=== PATIENT | male | born 1980 | race African-American/Black ===

== ENCOUNTER 2017-01-27 12:58 | Emergency (ER) | payer SELFPAY ==
[~2017-01-27] VITALS: Ht 175.3 cm; Wt 83.0 kg
[~2017-01-27 12:58] MED LIST: HYDR-3534 PO; PENI500T PO
[2017-01-27 13:00] VITALS: BP 149/73; PULSE 108; RESP 20; TEMP 97.8; O2SAT 100
--- NOTE | 2017-01-27 13:07 | PD ---
Physical Exam Time Seen by Provider: 13:05 Narrative 36 y/o male presents for evaluation of bilateral hand pain/paresthesias for 2 years. 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 Vital signs reviewed. Seen at triage desk, awaiting bed placement. Data Data Last Documented VS Vital Signs Date Time Temp Pulse Resp B/P Pulse Ox O2 Delivery O2 Flow Rate FiO2 01/27/17 13:00 97.8 108 20 149/73 100 Room Air [facility] Medical Record Reviewed: Yes Supervised Visit with SHERIF: Roger Rivera January 27, 2017 13:07
--- NOTE | 2017-01-27 13:28 | PD ---
HPI Chief Complaint: Numbness/Tingling Time Seen by Provider: 13:11 Travel History International Travel<30 days: No Contact w/Intl Traveler<30days: No Traveled to known affect area: No History of Present Illness HPI Patient is a 36-year-old male presents emergency Department with paresthesias. For the last 2 years he has had a burning, paresthesia tight pain in the bilateral hands. States initially this is in the first through third fingers on the hands but is now in the first through 5 fingers on both hands. Patient states that it feels as though he fell asleep on his hands and woke up. If he flicks the hands in a rapid fashion" gets more blood flow" to the hands they seemed to "wake up" and the paresthesias improves. Patient presents to the ER today stating that his symptoms seem to be getting worse. He has never seen anybody for this. PFSH Past Medical History Bipolar Disorder: Yes Psychiatric: Yes (BIPOLAR) Immunizations Current: Yes Social History Alcohol Use: No Tobacco Use: Yes (1PPD) Substance Use: Yes (MARIJUANA) Allergies-Medications (Allergen,Severity, Reaction): Coded Allergies: Aspirin (Verified Allergy, Severe, Anaphylaxis, 01/27/17) Reported Meds & Prescriptions Reported Meds & Active Scripts Active Lortab 7.5 mg/325 mg (Hydrocodone/Acetaminophen 7.5 mg/325 mg) 1 Tab 1 Tab PO Q4H PRN Pen Vk (Penicillin V Potassium) 500 Mg Tab 1 Tab PO Q6 Review of Systems Except as stated in HPI: all other systems reviewed are Neg Physical Exam Narrative GENERAL: Well-appearing male in no acute distress SKIN: Focused skin assessment warm/dry. HEAD: Normocephalic. EYES: No scleral icterus. No injection or drainage. ENT: Mucous membranes pink and moist. NECK: Supple CARDIOVASCULAR: Regular rate and rhythm. RESPIRATORY: No accessory muscle use. MUSCULOSKELETAL: Bilateral hands without obvious deformity, edema, skin changes. Good distal sensation, pulses, capillary refill. He does complain of some subjective paresthesias along the fingertips of the hands bilaterally. 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 With hyperflexion and hyperextension of the wrist patient has reproducible paresthesias NEUROLOGICAL: Awake and alert. Normal speech. PSYCHIATRIC: Appropriate mood and affect; insight and judgment normal. Data Data Last Documented VS Vital Signs Date Time Temp Pulse Resp B/P Pulse Ox O2 Delivery O2 Flow Rate FiO2 01/27/17 13:00 97.8 108 20 149/73 100 Room Air [facility] Medical Decision Making Medical Screen Exam Complete: Yes Emergency Medical Condition: No Medical Record Reviewed: Yes Differential Diagnosis 36 year-old male here with 2 years of burning type pain, paresthesias in the bilateral hands. Differential includes carpal tunnel syndrome, neuropathy Narrative Course No emergent medical condition, 2 years of symptoms. Reproducible hyperflexion and hyperextension at the wrist, likely carpal tunnel syndrome. Patient was seen by financial counselor and decides not to stay and was given outpatient resources. Diagnosis Primary Impression: Encounter for medical screening examination Disposition: [facility]GO-ED USE ONLY Condition: Stable Valery Willis MD January 27, 2017 13:28
== END 2017-01-27 13:17 | disposition left against medical advice (07) ==
LOC: NEPD 12:58
DX: R20.2 Paresthesia of skin (principal)
CPT/HCPCS: 99281